=== PATIENT | female | born 1960 | race Caucasian/White ===

== ENCOUNTER → 2019-10-22 | Outpatient (CLI) | payer OTHER ==
--- NOTE | 2019-10-25 15:09 | CT ---
Procedure: CT LUNG SCREENING Exam Date: October 22, 2019. Ordering Provider: Brett Ramírez Clinical Indication: PERSONAL HISTORY OF TOBACCO USE . Cigarette smoker. 40 pack year history. This patient meets eligibility criteria for low-dose CT lung cancer screening. Comparison: Baseline Lung screening CT examination. Chest x-ray October 2012. Technique: Using a multislice scanner, sequential helical axial imaging was obtained in the thorax, 2.5 mm thickness, 2.5 mm separation, from the level of the thoracic inlet through the lung bases without IV contrast. A low dose protocol was utilized for BMI less than 30: BMI: 27.4. CTDI: 1.76 mGy. 120. kVp. 45 mA. DLP 63 mGy-cm. 2D sagittal and coronal reconstructed images, 6.0 mm thickness, were obtained. This exam was performed according to our departmental dose optimization program which includes use of automated exposure control, adjustment of the mA and/or kV according to patient size and/or use of iterative reconstruction technique. Nodule measurements under 10 mm are given as mean value of 3 axes diameters. FINDINGS: Lungs and large airways: Scattered bilateral parenchymal blebs, mostly centrilobular, predominantly upper lung cameron. Bilateral multifocal pleural parenchymal scars. Subpleural blebs bilateral perihilar peribronchial wall cuffing. Bilateral thickened septa more than lower lobes, and bilateral lower lobe mosaic density. No abnormal nodule and no mass. No consolidation. Pleura and space: Bilateral minimal pleural thickening more in the apices. No acute process. Mediastinum and nia: evaluation limited by low dose technique and lack of IV contrast. Small hiatal hernia inferiorly. Small lymph nodes with no dominant soft tissue mass. Heart and great vessels: Coronary artery calcifications. Atherosclerotic calcifications aortic arch and proximal right common carotid artery. Also descending thoracic aorta. Chest wall, lower neck, axillae: Evaluation also limited by same factors as described above. Normal size axillary lymph nodes. Upper abdomen: Evaluation limited by low-dose technique. Small hiatal hernia. Stomach distended with food. Atherosclerotic calcifications. No free air or free fluid in the included peritoneal space. Osseous structures: Evaluation limited by low dose MIP technique. Unremarkable. IMPRESSION: Emphysematous changes in the upper lung cameron, and minimal diffuse airspace involvement and septal thickening in the lung bases. No focal consolidation. No abnormal nodules and no mass.. [facility] Best Practice Recommendations: please see below for Lung RADS category and FOLLOW-UP.* *Lung RADS category Category 1 - No nodule or definitely benign nodules (probability of malignancy less than 1%). Follow-up: ` Electronically signed by: Ramy Brasher MD 10/25/2019 3:07 PM CDT
== END ==
LOC: CT 13:30
PROVIDERS: ATTEND Family Medicine
DX: Z87.891 Personal history of nicotine dependence (principal); Z12.2 Encounter for screening for malignant neoplasm of respiratory organs; J43.9 Emphysema, unspecified; R91.8 Other nonspecific abnormal finding of lung field